=== PATIENT | male | born 1955 | race Caucasian/White ===

== ENCOUNTER → 2018-11-08 | Day surgery (SDC) | payer BC ==
[~2018-11-08] MED LIST: Lidocaine 1% 20 ML MDV ONE
--- NOTE | 2018-11-09 09:13 | OR ---
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 POSTOPERATIVE DIAGNOSIS: SAPHENOFEMORAL INSUFFICIENCY WITH SYMPTOMATIC PAINFUL VARICOSITIES. SURGEON: Carlos Wu MD PROCEDURE: BILATERAL ENDOVENOUS ABLATION OF GREAT SAPHENOUS VEINS. ANESTHESIA: Local with tumescent. COMPLICATIONS: None. SPECIMEN: None. FINDINGS: Successfully SON of bilateral GSVs. INDICATIONS: Mr. Murray has symptomatic varicose veins. He has documented insufficiency of both saphenofemoral junctions. We elected to proceed with radiofrequency ablation of bilateral GSVs. DESCRIPTION OF PROCEDURE: The patient was brought to the operating room suite, and the insufficient saphenous veins were mapped on each leg with ultrasound and diagrammed on the overlying skin along with the access sites around the calf on each side. Both limbs were prepped and draped in sterile fashion. The patient was placed in reverse Trendelenburg position, and local anesthesia to the right lower extremity was instilled at the access site. The vein was accessed using ultrasound guidance and using the Seldinger technique with a guidewire introduced, needle removed, with a small incision with #11 blade scalpel, a 6- [place] sheath was then placed over the guidewire and held in place by skin tension. After the guidewire was removed, the sheath was flushed. The radiofrequency probe was placed into the vein through the sheath and positioned 2.01 cm distal to the saphenofemoral junction under ultrasound guidance. Radiofrequency probe position was verified via ultrasound once again, and then tumescent anesthesia was infiltrated in the perivenous compartment using ultrasound guidance along the length of the vein from the entrance site to the saphenofemoral junction achieving a nice halo affect. The patient was placed in Trendelenburg position to exsanguinate the superficial system. Once radiofrequency probe position was confirmed again with direct external compression along the length of the heating element, radiofrequency energy was applied. The vein was ablated, heating a 7 cm segment, and indexing the catheter forward 6.5 cm until treatment length was completed. Device temperature was kept at 120 degrees Celsius with an initial power level of 40 kurtz, dropping to below 20. Total radiofrequency treatment time in the right lower extremity was 3 minutes and 40 seconds with 11 radiofrequency cycles. A total 450 mL of tumescent was used. The patient was then placed back in reverse Trendelenburg position and same procedure was accomplished on his left lower extremity. The vein was accessed again around the level of the calf using Seldinger technique and ultrasound guidance with a guidewire introduced through the needle. Once the needle was removed, an 11 blade was used to create a small incision. A 6-[place] sheath was placed over the guidewire. Once the guidewire was removed, the sheath was held in place by skin tension. Sheath was flushed and radiofrequency probe was again placed into the vein through the sheath and positioned 2.1 cm distal to the saphenofemoral junction under ultrasound guidance. Once probe position verified via ultrasound, tumescent anesthesia was infiltrated into the perivenous compartment along the length of the vein from the entrance site to the saphenofemoral junction achieving a halo affect. The patient was placed back in Trendelenburg position to exsanguinate the superficial system. Radiofrequency probe position confirmed via ultrasound and then with direct external compression along the length of the heating element. Radiofrequency energy was applied. The vein was ablated heating a 7 cm segment, indexing the catheter 4 x 6.5 cm until treatment length was complete. Device temperature was kept at 120 degrees Celsius with an initial power level of 40 kurtz, dropping to below 20 for each treatment. Total treatment time in the left lower extremity was 3 minutes and 40 seconds with 11 radiofrequency cycles. A total of 350 mL of tumescent anesthesia was used. Ultrasound confirmed successful treatment. The catheter and sheath were withdrawn, and hemostasis was achieved with direct pressure. The left lower extremity was then wrapped from the level of the foot to the calf. The patient was stable in recovery room without any complications. TITUS/ALMA /[id number]
== END ==
LOC: CC.SDS 07:07
PROVIDERS: ATTEND Family Medicine
DX: I83.813 Varicose veins of bilateral lower extremities with pain (principal); I87.2 Venous insufficiency (chronic) (peripheral)
CPT/HCPCS: A4216

== ENCOUNTER 2019-05-21 02:00 | Emergency (ER) | payer OTHER, BC ==
[2019-05-21] MEDS ORDERED: Lidocaine 1% with EPINEPHrine 1:100,000 20 ML MDV INJECT ONE (02:21)
--- NOTE | 2019-05-21 02:21 | EDM.PDOC ---
ED HPI GENERAL MEDICAL PROBLEM - General Chief Complaint: Laceration Stated Complaint: laceration Time Seen by Provider: 05/21/19 02:14 Source of Information: Reports: Patient History Limitations: Reports: No Limitations - History of Present Illness INITIAL COMMENTS - FREE TEXT/NARRATIVE: This patient is a 64 year old male that presents to the ER. Patient reports that he was working and standing on a ladder. He reports he was about 3 feet off the ground coming down the ladder when he missed a step and fell backwards to the ground. Patient reports hitting the viola of his head on the ground and his glasses cut the left eyebrow area during the fall. Patient reports hitting his head. Patient reports he felt dazed. Patient denies loc, n, v, vision changes, neck pain, back pain, chest pain, shortness of breath, abd pain, urinary/bowel changes. Patient denies any arm or leg, hip, pelvis, leg pain. Patient denies any facial pain. Patient is alert and oriented. He reports he takes a low dose ASA daily. Patient only complaint is a mild headache. Patient has a laceration to the posterior scalp and deep abrasion to the left eyebrow. Onset: Today Onset Date: 05/21/19 Onset Time: 01:30 Location: Reports: Head Front/Back Body Image: 1 - laceration 2 - laceration Severity: Mild Improves with: Reports: None Worsens with: Reports: None Associated Symptoms: Reports: Headaches. Denies: Confusion, Chest Pain, Cough, cough w sputum, Diaphoresis, Fever/Chills, Loss of Appetite, Malaise, Nausea/ Vomiting, Rash, Seizure, Shortness of Breath, Syncope, Weakness Posterior Head Pain Score (Numeric/FACES): 3 - Related Data Allergies Allergy/AdvReac Type Severity Reaction Status Date / Time No Known Allergies Allergy Verified 05/21/19 02:06 Home Meds: Home Meds Aspirin [Halfprin] 81 mg PO DAILY 02/12/14 [History] Ferrous Sulfate [Iron] 325 mg PO DAILY 02/12/14 [History] Latanoprost 1 drop EYEBOTH BEDTIME 02/12/14 [History] Lisinopril 5 mg PO DAILY 02/12/14 [History] Metoprolol Tartrate [Lopressor] 12.5 mg PO BID 02/12/14 [History] Multivitamin [Multi Vitamin Daily] 1 each PO DAILY 02/12/14 [History] Simvastatin [Zocor] 10 mg PO BEDTIME 11/08/18 [History] Social & Family History - Tobacco Use Smoking Status *Q: Never Smoker - Caffeine Use Caffeine Use: Reports: Coffee - Recreational Drug Use Recreational Drug Use: No ED ROS GENERAL - Review of Systems Review Of Systems: See Below Constitutional: Reports: No Symptoms HEENT: Reports: No Symptoms Respiratory: Reports: No Symptoms Cardiovascular: Reports: No Symptoms Endocrine: Reports: No Symptoms GI/Abdominal: Reports: No Symptoms : Reports: No Symptoms Musculoskeletal: Denies: Neck Pain, Shoulder Pain, Arm Pain, Back Pain, Hand Pain, Leg Pain, Foot Pain, Joint Pain, Joint Swelling, Muscle Pain, Muscle Stiffness Skin: Reports: Wound Neurological: Reports: Headache. Denies: Confusion, Dizziness, Numbness, Seizure, Syncope, Tingling, Tremors, Trouble Speaking, Difficulty Walking, Weakness, Change in Speech, Gait Disturbance Psychiatric: Reports: No Symptoms Hematologic/Lymphatic: Reports: No Symptoms ED EXAM, SKIN/RASH Exam: See Below Exam Limited By: No Limitations General Appearance: Alert, WD/WN, No Apparent Distress Eye Exam: Bilateral Eye: EOMI, Normal Inspection, PERRL Ears: Normal External Exam, Normal Canal, Hearing Grossly Normal, Normal TMs Nose: Normal Inspection, Normal Mucosa, No Blood Throat/Mouth: Normal Inspection, Normal Lips, Normal Teeth, Normal Gums, Normal Oropharynx, Normal Voice, No Airway Compromise Head: Facial Swelling (mild swelling left eyebrow), Other (no evidence of skull fracture/tenderness during skull palpation). No: Facial Tenderness, Sinus Tenderness Neck: Normal Inspection, Supple, Non-Tender, Full Range of Motion. No: Tender Lateral, Tender Midline Respiratory/Chest: No Respiratory Distress, Lungs Clear, Normal Breath Sounds, No Accessory Muscle Use, Chest Non-Tender Cardiovascular: Normal Peripheral Pulses, Regular Rate, Rhythm, No Edema, No Gallop, No JVD, No Murmur, No Rub Peripheral Pulses: 2+: Radial (L), Radial (R), Posterior Tibial (L), Posterior Tibial (R) GI/Abdominal: Normal Bowel Sounds, Soft, Non-Tender, No Organomegaly, No Distention, No Abnormal Bruit, No Mass, Pelvis Stable (Male) Exam: Deferred Rectal (Males) Exam: Deferred Back Exam: Normal Inspection, Full Range of Motion. No: CVA Tenderness (L), CVA Tenderness (R), Decreased Range of Motion, Muscle Spasm, Paraspinal Tenderness, Vertebral Tenderness Extremities: Normal Inspection, Normal Range of Motion, Non-Tender, No Pedal Edema, Normal Capillary Refill Neurological: Alert, Oriented, Normal Cognition, Normal Gait, No Motor/Sensory Deficits Psychiatric: Normal Affect, Normal Mood Skin: Warm, Dry, Normal Color, No Rash, Wound/Incision Location, Skin: Head (posterior scalp laceraton), Face (left eyebrow small deep abrasion (not sutureable)) Associated features: Tenderness (posterior scalp), Swelling (mild left eyebrow at laceration) Lymphatic: No Adenopathy ED SKIN PROCEDURES - Laceration/Wound Repair Posterior Midline Head Lac/Wound length In cm: 3.5 Appearance: Superficial, Clean Distal NVT: Neuro & Vascular Intact, No Tendon Injury Anesthetic Type: Local Local Anesthesia - Lidocaine (Xylocaine): 1% with EPI Local Anesthetic Volume: 2cc Skin Prep: Chlorhexidine (Hibiciens) Saline Irrigation (cc's): 10 Exploration/Debridement/Repair: Wound Explored, In a Bloodless Field, Explored to Base, No Foreign Material Found, Multiple Flaps Aligned Closed with: Tray # of Sutures: 5 (tray) Drain Placement: No Tetanus Status Addressed: Yes Complications: No Progress/Comments: The wound is upside down "Y" shape. Course - Vital Signs Last Recorded V/S: Last Vital Signs Temp 97.4 F 05/21/19 02:00 Pulse 61 05/21/19 02:00 Resp 18 05/21/19 02:00 BP 143/81 H 05/21/19 02:00 Pulse Ox 95 05/21/19 02:00 - Orders/Labs/Meds Orders: Active Orders 24 hr Category Date Time Status Cervical Spine wo Cont [CT] Stat Exams 05/21/19 02:20 Taken Head wo Cont [CT] Stat Exams 05/21/19 02:20 Taken Meds: Medications Discontinued Medications Generic Name Dose Route Start Last Admin Trade Name Freq PRN Reason Stop Dose Admin Lidocaine/Epinephrine 20 ml 05/21/19 02:21 05/21/19 02:45 Xylocaine 1% With Epinephrine 1:100,000 INJECT 05/21/19 02:22 20 ml ONETIME ONE Administration Neomycin/Polymyxin/Bacitracin 1 each 05/21/19 02:51 05/21/19 02:56 Triple Antibiotic Oint TOP 05/21/19 02:52 1 each ONETIME ONE Administration - Radiology Interpretation Free Text/Narrative:: Head CT without: No bleed. There is a nondisplaced OCCIPITAL CALVARIAL FRACTURE. Cervical CT: No fracture CT Results Date: 05/21/19 CT Results Time: 03:45 - Re-Assessments/Exams Free Text/Narrative Re-Assessment/Exam: 05/21/19 03:59 I spoke with the patient concerning his results. Patient is alert and oriented. I then called and spoke to [facility] at [facility]. Neurosurgeon will review the ct scan and call me back. 05/21/19 04:[address] Ricardo neurosurgeon at [facility]. He reports there is nothing to do for this injury. He reports he would just clean and close the wound. He reports may discharge the patient. No reason to repeat ct at later time. The patient is alert and oriented. He is walking to the bathroom in department without difficulty. I will discharge the patient. The patient can followup TuesdayMay [address] Ricardo in [place]. Departure - Departure Time of Disposition: 04:10 Disposition: Home, Self-Care 01 Condition: Good Clinical Impression: Laceration, Abrasion Head injury Qualifiers: Encounter type: initial encounter Qualified Code(s): S09.90XA - Unspecified injury of head, initial encounter Fall from ladder Qualifiers: Encounter type: initial encounter Qualified Code(s): W11.XXXA - Fall on and from ladder, initial encounter Occipital fracture Qualifiers: Encounter type: initial encounter Fracture type: open Occipital fracture type: other fracture of occiput Laterality: unspecified laterality Qualified Code(s): S02.118B - Other fracture of occiput, unspecified side, initial encounter for open fracture - Discharge Information *PRESCRIPTION DRUG MONITORING PROGRAM REVIEWED*: No *COPY OF PRESCRIPTION DRUG MONITORING REPORT IN PATIENT ERMIAS: No Instructions: Concussion, Adult, [id number], Head Injury, Adult, Skull Fracture, Adult, Laceration Care, Adult, [id number], Stitches, [place], or Adhesive Wound Closure, [id number] Referrals: Carlos Wu MD [Primary Care Provider] - Forms: ED Department Discharge Additional Instructions: Follow-up with your primary care provider in 5-7 days for staple removal ( Tuesday for recheck) Return to the ER for worsening of condition or any emergent concerns such as increase in pain, vomiting, vision changes, seizures, loss of consciousness, or other concerns Wash wounds twice a day with soap and water, rinse, pat dry Tylenol for headache Hold Aspirin for 48 hours Call today Neurosurgeon Dr. Ricardo [phone] for an appointment for follow- up - My Orders Last 24 Hours: My Active Orders 05/21/19 02:20 Cervical Spine wo Cont [CT] Stat Head wo Cont [CT] Stat - Assessment/Plan Last 24 Hours: My Active Orders 05/21/19 02:20 Cervical Spine wo Cont [CT] Stat Head wo Cont [CT] Stat Plan: PLEASE SEE RN NOTE FOR PFSH.
[2019-05-21] MEDS ORDERED: Bacitracin/Neomycin/Polymyxin B Oint 0.9 GM U/D Packet TOP ONE (02:51)
== END 2019-05-21 04:24 | disposition home or self-care (01) ==
LOC: CC.ED 02:00
DX: S02.118B Other fracture of occiput, unspecified side, initial encounter for open fracture (principal); S01.01XA Laceration without foreign body of scalp, initial encounter; S00.212A Abrasion of left eyelid and periocular area, initial encounter; W11.XXXA Fall on and from ladder, initial encounter; Z79.899 Other long term (current) drug therapy; Z79.82 Long term (current) use of aspirin
CPT/HCPCS: 12002; 70450; 72125; 99283-25

== ENCOUNTER → 2021-03-06 | Day surgery (SDC) | payer BC ==
[~2021-03-06] MED LIST changes: +Lactated Ringers 1,000 ML IV ONE; +Lactated Ringers 1,000 ML IV SCH; -Lidocaine 1% 20 ML MDV ONE
--- NOTE | 2021-03-09 08:04 | OR ---
DATE OF OPERATION: 03/06/2021 PREOPERATIVE DIAGNOSIS: SCREENING COLONOSCOPY. POSTOPERATIVE DIAGNOSIS: SCREENING COLONOSCOPY. SURGEON: Carlos Wu MD PROCEDURE: FULL-LENGTH COLONOSCOPY. ANESTHESIA: MAC. COMPLICATIONS: None. SPECIMEN: None. FINDINGS: 1. Full-length colonoscopy. 2. Mild sigmoid diverticulosis. 3. Marginal prep. RECOMMENDATIONS: Followup colonoscopy in 10 years per ACS guidelines. INDICATIONS: The patient is 10 years out from his last colonoscopy. He is in for a routine screen. DESCRIPTION OF PROCEDURE: The patient was prepped and draped, placed in the left lateral decubitus position. A lubricated Olympus colonoscope was inserted and easily advanced to the cecum. Direct visualization of the ileocecal valve and appendiceal orifice was accomplished. The bowel prep was marginal. There was a lot of liquid stool in the colon, most of this could be suctioned. There were some areas with some heavier particulate matter that could not be, certainly in those area smaller lesions may have been missed. Upon withdrawal, throughout the entire length of the colon, I could find no polyps, masses, ulceration, or bleeding sites. No vascular abnormalities or signs of colitis. The patient does have scattered diverticula through the sigmoid area, mild in severity. The rectal vault was benign, unfortunately filled with a lot of stool. We could not suction this. Retroflexion was accomplished and about half of the perianal region looked benign. Air was then suctioned and the scope removed without complication. TITUS/ALMA /[id number]
== END ==
LOC: CC.SDS 10:34
PROVIDERS: ATTEND Family Medicine
DX: Z12.11 Encounter for screening for malignant neoplasm of colon (principal); K57.30 Diverticulosis of large intestine without perforation or abscess without bleeding; I25.10 Atherosclerotic heart disease of native coronary artery without angina pectoris; E78.5 Hyperlipidemia, unspecified; I10 Essential (primary) hypertension; G47.30 Sleep apnea, unspecified; N40.1 Benign prostatic hyperplasia with lower urinary tract symptoms; R35.1 Nocturia; Z01.812 Encounter for preprocedural laboratory examination; Z20.822 Contact with and (suspected) exposure to COVID-19; Z79.82 Long term (current) use of aspirin; Z79.899 Other long term (current) drug therapy; Z95.1 Presence of aortocoronary bypass graft
CPT/HCPCS: J7120; U0002